=== PATIENT | female | born 1985 ===

== ENCOUNTER 2021-08-30 08:42 | Emergency (ER) | payer MEDICAID ==
[2021-08-30] MEDS ORDERED: levETIRAcetam 1000 MG/NS 0.75% 1,000 MG/100 ML BAG IV ONE (09:13)
[2021-08-30] MEDS ORDERED: LIDOCAINE (1%) 10 MG/1 ML VIAL 20 ML MDV INFILTRATI ONE (09:14)
[2021-08-30] MEDS ORDERED: SODIUM CHLORIDE 0.9% IRR 500 ML BOTTLE IR ONE (09:14)
[2021-08-30] MEDS ORDERED: TETANUS,DIPH,PERTUSS(ACELL) VACCINE 0.5 ML SYRINGE IM ONE (09:14)
--- NOTE | 2021-08-30 09:16 | Emergency Department Report ---
ED General Adult HPI - General Chief complaint: Seizure Stated complaint: I had a seizure and fell Time Seen by Provider: 08/30/21 08:49 Source: patient, EMS ( EMS documentation not available at time of chart dictation ), RN notes reviewed, old records reviewed Mode of arrival: Stretcher Limitations: No Limitations - History of Present Illness Initial comments: The patient is a 35-year-old female. She is not known to myself previously. She is currently on a 1013. The patient reports that she has a history of seizure disorder. She reports that she currently takes Keppra. She presents to the ER from a local psychiatric facility, for medical clearance for psychiatric redisposition. Patient reports that she was standing up, and reports that she had a seizure. She reports that she is taking her Keppra, and she reports that she fell onto her forehead. Prior to the seizure, the patient denies physical pain. The patient admits to left supraorbital pain. She is a mild frontal headache. There is no neck pain. There is no chest pain. There is no abdominal pain. Denies focal extremity weakness/numbness. Denies homicidality and suicidality. Denies loss of vision. Also reports that she had a seizure last night/2 days ago. Currently taking Seroquel, Keppra, and Remeron. Patient was recently medically cleared at another facility, and referred to the current psychiatric facility, with a 1013 that is documenting "impaired insight/ judgment, R/O psychosis." In addition, it is documented that the patient was attempting to bite staff. -: Sudden Location: head, face Severity scale (0 -10): 1 Quality: aching Consistency: constant Improves with: rest Worsens with: movement - Related Data Previous Rx's Medication Instructions Recorded Last Taken Type Bacitracin Zinc 28.35 gm TP BID 7 Days #1 oint...g. 08/30/21 Unknown Rx Clindamycin [Clindamycin CAP] 300 mg PO Q6H #27 capsule 08/30/21 Unknown Rx Ibuprofen [Motrin] 400 mg PO Q8H PRN #30 tablet 08/30/21 Unknown Rx Allergies Allergy/AdvReac Type Severity Reaction Status Date / Time benzoyl peroxide Allergy Unknown Verified 08/30/21 08:46 [From [facility]] codeine Allergy Unknown Verified 08/30/21 08:46 hyaluronic acid [From [facility]] Allergy Unknown Verified 08/30/21 08:46 Penicillins Allergy Unknown Verified 08/30/21 08:46 phenytoin [From Dilantin] Allergy Unknown Verified 08/30/21 08:46 ED Review of Systems ROS: Stated complaint: ALCOHOL WITHDRAWAL Other details as noted in HPI Constitutional: denies: fever Eyes: other (Left supraorbital pain). denies: eye discharge, vision change ENT: dental pain Respiratory: denies: cough Cardiovascular: denies: chest pain Gastrointestinal: denies: abdominal pain, nausea, vomiting, diarrhea Genitourinary: denies: dysuria Musculoskeletal: myalgia Neurological: headache. denies: weakness Psychiatric: anxiety. denies: homicidal thoughts, suicidal thoughts ED Past Medical Hx - Medications Home Medications: Home Medications Medication Instructions Recorded Confirmed Last Taken Type Bacitracin Zinc 28.35 gm TP BID 7 Days #1 oint...g. 08/30/21 Unknown Rx Clindamycin [Clindamycin CAP] 300 mg PO Q6H #27 capsule 08/30/21 Unknown Rx Ibuprofen [Motrin] 400 mg PO Q8H PRN #30 tablet 08/30/21 Unknown Rx ED Physical Exam - General Limitations: No Limitations General appearance: alert, anxious - Head Head exam: Present: normocephalic, other (Bilateral infraorbital ecchymosis noted. There is a 1.5 cm left lateral eyebrow/supraorbital laceration) - Eye Eye exam: Present: normal appearance, PERRL, EOMI, nystagmus, periorbital swelling (Left-sided), periorbital tenderness (Left-sided) - ENT ENT exam: Present: normal orophraynx, mucous membranes moist, TM's normal bilaterally, normal external ear exam. Absent: normal exam (Poor dentition) - Neck Neck exam: Present: normal inspection, full ROM. Absent: tenderness, men ingismus - Respiratory Respiratory exam: Present: normal lung sounds bilaterally. Absent: respiratory distress, wheezes, rales, rhonchi, stridor, decreased breath sounds - Cardiovascular Cardiovascular Exam: Present: regular rate, normal rhythm, normal heart sounds. Absent: bradycardia, tachycardia, irregular rhythm, systolic murmur, diastolic murmur, rubs, gallop - GI/Abdominal GI/Abdominal exam: Present: soft, normal bowel sounds. Absent: distended, tenderness, guarding, rebound, rigid, pulsatile mass - Extremities Exam Extremities exam: Present: normal inspection, full ROM, other (2+ pulses noted in the bilateral upper and lower extremities. There is no palpable cord. negative Homans sign. Muscular compartments are soft. The pelvis is stable.). Absent: pedal edema, calf tenderness - Back Exam Back exam: Present: normal inspection, full ROM. Absent: tenderness, CVA tenderness (R), CVA tenderness (L), paraspinal tenderness, vertebral tenderness - Neurological Exam Neurological exam: Present: alert, oriented X3, other (No facial droop. Tongue midline. Extraocular movements intact bilaterally. Facial sensation intact to light touch in V1, V2, V3 distribution bilaterally. 5 and a 5 strength in 4 extremities. Sensation intact to light touch in 4 extremities.). Absent: motor sensory deficit - Psychiatric Psychiatric exam: Present: normal affect, normal mood - Skin Skin exam: Present: warm, ecchymosis (Bilateral infraorbital ecchymosis) ED Course Vital Signs 08/30/21 08/30/21 08:47 11:39 Temperature 98.7 F Pulse Rate 93 H 84 Respiratory 18 18 Rate Blood Pressure 114/81 119/84 [Left] O2 Sat by Pulse 100 96 Oximetry - Reevaluation(s) Reevaluation #1: 08/30/21 10:51 Differential diagnosis, including but not limited to: Seizure, pneumonia, urinary tract infection, closed head injury, facial laceration, facial fracture, pseudoseizure, electrolyte derangement Assessment and plan: 35-year-old female, who is currently afebrile, with reas suring vital signs, who is clinically sober, with a GCS of 15, patient is clinically sober at this time. The cervical spine is cleared through nexus and [facility]er c spine rule who presents to the ER today with a complaint of seizure today, seizure yesterday, left supraorbital abrasion and ecchymosis, as well as laceration, and bilateral infraorbital ecchymosis. Noncontrast CT scan of the brain negative for acute findings. Noncontrast CT scan of the facial bones suggest left-sided infraorbital wall fracture. There are no clinical signs of entrapment. Visual acuity intact to finger counting, color perception, reading at a close distance Still awaiting laboratory studies. EKG unremarkable. Urinalysis and chest x- ray pending. Have repaired patient supraorbital laceration, please see pro cedure note. We will discuss with [facility] trauma team to address patient's left- sided infraorbital nondisplaced wall fracture. Anticipate outpatient follow-up for this. Reevaluation #2: 08/30/21 11:32 Discussed the patient's history, physical, laboratory studies and imaging studies as well as clinical impression with oral maxillofacial surgeon on-call for Dr. Nirav Paredes. Advises outpatient follow-up, antibiotics, sinus precautions, patient to follow-up within a week. Patient currently resting comfortably on stretcher, she is in no acute distress at this time. 08/30/21 12:47 Laboratory studies unremarkable. No seizures noted. Patient resting comfortably in stretcher, and in no acute distress 08/30/21 13:53 discussed with Muna [id number], medical assistant director of nursing for [facility]. Discussed the patient's history, physical, and pertinent imaging findings. I specifically discussed that patient's facial fracture is not a contraindication to discharge, and if this patient were not on a 1013, she will be discharged from the emergency room, to follow-up as an outpatient. Patient remains medically suitable for discharge with outpatient follow-up. It will be the responsibility the receiving psychiatric center to arrange outpatient follow-up 08/30/21 15:07 While awaiting transportation, a britton umana is called overhead. Apparently, patient trying to leave her room, trying to bite her sitter, not responding to verbal techniques or show of force. [id number] evaluation performed by myself. Ultimately, patient able to be deescalated, as needed Joyce is ordered. - Laceration /Wound Repair Left Upper Face Wound Location: face Wound Length (cm): 1 (1.5 cm) Wound's Depth, Shape: into muscle, linear, contused tissue Wound Explored: clean Irrigated w/ Saline (ccs): 500 Betadine Prep?: No Anesthesia: 1% Lidocaine Volume Anesthetic (ccs): 5 Wound Repaired With: sutures Suture Size/Type: 5:0 (Monofilament, interrupted) Number of Sutures: 3 Layer Closure?: No Sterile Dressing Applied?: Yes ED Medical Decision Making - Lab Data Result diagrams: 08/30/21 10:12 08/30/21 10:12 Vital Signs 08/30/21 08:47 Temperature 98.7 F Pulse Rate 93 H Respiratory 18 Rate Blood Pressure 114/81 [Left] O2 Sat by Pulse 100 Oximetry - EKG Data -: EKG Interpreted by Me EKG shows normal: sinus rhythm Rate: normal - EKG Data 08/30/21 10:46 The EKG is interpreted at 09: 19 Sinus rhythm, rate 92 bpm. Normal P wave axis, left axis deviation. Low voltage. QTC, [place] interval within normal limits. Nonspecific abnormal findings, Q waves noted in the inferior leads. This is an abnormal EKG, this is not a STEMI - Radiology Data Radiology results: pending, report reviewed, image reviewed CT facial bones wo con INDICATION: sz, fall closed head injuiry, facial injury. TECHNIQUE: CT face. All CT scans at this location are performed using CT dose reduction for ALARA by means of automated exposure control. COMPARISON: None. FINDINGS: Facial bones: Central midface: Nasal bones: Normal; perpendicular plate of ethmoid: Normal; no soft tissue swelling around the nasal septal cartilage Nasoorbitoethmoid: Normal Lateral midface: Orbit: Inferior orbital rim normal bilaterally; I am suspicious of fracture of the floor of the orbit on the left side; medial to infraorbital foramen; minimal displacement Zygomaticomaxillary complex: No fracture Zygomatic arch: Normal Mandible: No fracture TMJ: Normal Sinuses: Fluid accumulation in the left maxillary sinus. Orbits: Globes are intact. Additional findings:No other significant abnormality. IMPRESSION: I am suspicious of subtle nondisplaced fracture in the floor of the left orbit Signer Name: Mg Brown MD Signed: 08/30/2021 9:29 AM Workstation Name: [id number] [address] SCAN OF THE HEAD: INDICATION / CLINICAL INFORMATION: 35 years Female; sz, fall closed head injuiry. TECHNIQUE: Routine CT head without cont rast. All CT scans at this location are performed using CT dose reduction for ALARA by means of automated exposure control. COMPARISON: None. FINDINGS: BRAIN / INTRACRANIAL CONTENTS: No intracranial sequela from the trauma; scalp hematoma in the left frontal region; no fluid level in the visualized portions of the paranasal sinuses No acute hemorrhage, mass effect, midline shift, hydrocephalus, or acute, large territorial infarct. No chronic infarct or focal atrophy. Normal brain volume and ventricular/sulcal size for age. No significant white matter abnormality. CRANIOCERVICAL JUNCTION: No significant abnormality. ORBITS: No significant abnormality of visualized orbits. SINUSES / MASTOIDS: Fluid level in the left maxillary sinus ADDITIONAL FINDINGS: None. IMPRESSION: No intracranial sequela from the trauma; left frontal scalp hematoma Signer Name: Mg Brown MD Signed: 08/30/2021 9:20 AM Workstation Name: [id number] Chest x-ray negative for acute CHEST 1 VIEW 08/30/2021 11:47 AM INDICATION / CLINICAL INFORMATION: sz, left sided neuro stim device. COMPARISON: None available. FINDINGS: SUPPORT DEVICES: Neurostimulator device projects over the left chest wall. HEART / MEDIASTINUM: No significant abnormality. LUNGS / PLEURA: No significant pul monary or pleural abnormality. No pneumothorax. ADDITIONAL FINDINGS: No significant additional findings. IMPRESSION: 1. No acute findings. Signer Name: Jt Hutchinson MD Signed: 08/30/2021 11:15 AM Workstation Name: [id number] Critical care attestation.: If time is entered above; I have spent that time in minutes in the direct care of this critically ill patient, excluding procedure time. ED Disposition Clinical Impression: Closed head injury, Facial laceration, Seizure disorder, Fracture of orbital wall, Medical clearance for psychiatric admission Disposition: [address] [place] [address] Is pt being admited?: No Does the pt Need Aspirin: No Condition: Good Instructions: Laceration Care, Adult, Seizure, Adult Additional Instructions: The patient should not drive or operate motor vehicles for the next 6 months. The patient has left-sided supraorbital sutures, which should be taken out in 5 to 7 days. The patient should follow-up with her primary care doctor, urgent care center, or return to the emergency room to have the sutures taken out. Patient had CT scan of the brain and facial bones, which demonstrated a minimally displaced left-sided infraorbital wall fracture. The patient should follow-up with an ENT physician, or oral surgeon within the next 7 days for repeat checkup and evaluation. Patient's case was discussed with [facility] oral surgery, Dr. Trujillo, who advised this patient should follow-up within the recommended timeframe. Patient and family physician are free to contact alternative oral surgeons or ENT physicians for left-sided infraorbital wall fracture if they so desire. [place] contact information is as follows: [facility] [address] [place] [address] [address] Floor[address] Friday: 11 AM - 4:30 PM Friday: 8 AM - 4:30 PM Every other : 8 AM - 4:30 PM Every other Friday: 8 AM - 4:30 PM (Main) (Appointments) The patient should also take the antibiotics as directed, apply bacitracin antibiotics to the left supraorbital laceration, taking care to not applied to the left eye itself, the patient may take [id number] Tylenol and ibuprofen as needed for physical pain. Please return to the emergency room right away with new pain, worsened pain, migration of pain, projectile vomiting, change in mental status, confusion, inability tolerate liquid feeds, new, worsened or different symptoms not present on the initial emergency room evaluation Please have your primary care doctor contact the medical records department to obtain copies of laboratory studies and radiology studies, to follow-up on nonemergent incidental abnormal findings. The patient should also avoid blowing her nose, nasal trauma, manipulating the nose or face. Prescriptions: Bacitracin Zinc 28.35 gm TP BID 7 Days #1 oint...g. Clindamycin [Clindamycin CAP] 300 mg PO Q6H #27 capsule Ibuprofen [Motrin] 400 mg PO Q8H PRN #30 tablet PRN Reason: Pain Referrals: HECTOR PLAZA MD [Staff Physician] - 7-10 days
--- NOTE | 2021-08-30 10:24 | Cat Scan Report ---
NONENHANCED CT SCAN OF THE HEAD: INDICATION / CLINICAL INFORMATION: 35 years Female; sz, fall closed head injuiry. TECHNIQUE: Routine CT head without contrast. All CT scans at this location are performed using CT dos e reduction for ALARA by means of automated exposure control. COMPARISON: None. FINDINGS: BRAIN / INTRACRANIAL CONTENTS: No intracranial sequela from the trauma; scalp hematoma in the left fr ontal region; no fluid level in the visualized portions of the paranasal sinuses No acute hemorrhage, mass effect, midline shift, hydrocephalus, or acute, large territorial infarct. No chronic infarct or focal atrophy. Normal brain volume and ventricular/sulcal size for age. No sign ificant white matter abnormality. CRANIOCERVICAL JUNCTION: No significant abnormality. ORBITS: No significant abnormality of visualized orbits. SINUSES / MASTOIDS: Fluid level in the left maxillary sinus ADDITIONAL FINDINGS: None. IMPRESSION: No intracranial sequela from the trauma; left frontal scalp hematoma Signer Name: Mg Brown MD Signed: 08/30/2021 10:20 AM Workstation Name: [id number]
--- NOTE | 2021-08-30 10:34 | Cat Scan Report ---
CT facial bones wo con INDICATION: sz, fall closed head injuiry, facial injury. TECHNIQUE: CT face. All CT scans at this location are performed using CT dose reduction for ALARA by means of automated exposure control. COMPARISON: None. FINDINGS: Facial bones: Central midface: Nasal bones: Normal; perpendicular plate of ethmoid: Normal; no soft tissue swelling around th e nasal septal cartilage Nasoorbitoethmoid: Normal Lateral midface: Orbit: Inferior orbital rim normal bilaterally; I am suspicious of fracture of the floor of th e orbit on the left side; medial to infraorbital foramen; minimal displacement Zygomaticomaxillary complex: No fracture Zygomatic arch: Normal Mandible: No fracture TMJ: Normal Sinuses: Fluid accumulation in the left maxillary sinus. Orbits: Globes are intact. Additional findings:No other significant abnormality. IMPRESSION: I am suspicious of subtle nondisplaced fracture in the floor of the left orbit Signer Name: Mg Brown MD Signed: 08/30/2021 10:29 AM Workstation Name: [id number]
[2021-08-30] MEDS ORDERED: BACITRACIN ZINC OINT 28.4 GM TP STA (10:47)
[2021-08-30 10:55] LABS: Bilirubin,Urine NEG (Negative); Blood,Urine NEG (Negative); Color,Urine Yellow (Yellow); Mucus,Urine FEW /HPF; Protein,Urine <15 mg/dL mg/dL (Negative); Urobilinogen,Urine < 2.0 mg/dL (<2.0)
[2021-08-30 10:58] LABS: Hematocrit 43.2 % (30.3-42.9); Hemoglobin 13.5 gm/dl (10.1-14.3); Mean Corpuscular HGB Conc 31 % (30-34); Mean Corpuscular Volume 90 fl (79-97); Platelet Count 390 K/mm3 (140-440); Red Blood Count 4.83 M/mm3 (3.65-5.03); Red Cell Distribution Width 15.8 % (13.2-15.2)
[2021-08-30 11:04] LABS: Alanine Aminotransferase 13 units/L (7-56); Albumin 4.3 g/dL (3.9-5); Blood Urea Nitrogen 12 mg/dL (7-17); Calcium 9.6 mg/dL (8.4-10.2); Hemolysis Index 12
[2021-08-30 11:40] VITALS: BP 119/84
[2021-08-30 11:41] LABS: BUN/Creatinine Ratio 17
[2021-08-30] MEDS ORDERED: KETOROLAC 30 MG/1 ML INJ IV ONE (11:43)
--- NOTE | 2021-08-30 12:19 | XRay Report ---
CHEST 1 VIEW 08/30/2021 11:47 AM INDICATION / CLINICAL INFORMATION: sz, left sided neuro stim device. COMPARISON: None available. FINDINGS: SUPPORT DEVICES: Neurostimulator device projects over the left chest wall. HEART / MEDIASTINUM: No significant abnormality. LUNGS / PLEURA: No significant pulmonary or pleural abnormality. No pneumothorax. ADDITIONAL FINDINGS: No significant additional findings. IMPRESSION: 1. No acute findings. Signer Name: Jt Hutchinson MD Signed: 08/30/2021 12:15 PM Workstation Name: [id number]
[2021-08-30] MEDS ORDERED: CLINDAMYCIN 300 MG CAP PO ONE (12:47)
--- NOTE | 2021-08-30 13:33 | Electrocardiograph Report ---
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
[2021-08-30] MEDS ORDERED: ZIPRASIDONE MESYLATE 20 MG VIAL IM PRN (14:33)
== END 2021-08-30 19:10 ==
LOC: ED 08:42
DX: S01.81XA Laceration without foreign body of other part of head, initial encounter (principal); G40.909 Epilepsy, unspecified, not intractable, without status epilepticus; S02.85XA Fracture of orbit, unspecified, initial encounter for closed fracture; W18.39XA Other fall on same level, initial encounter; Y93.89 Activity, other specified; Y92.89 Other specified places as the place of occurrence of the external cause; Y99.8 Other external cause status; Z88.0 Allergy status to penicillin; Z88.5 Allergy status to narcotic agent; Z88.8 Allergy status to other drugs, medicaments and biological substances
CPT/HCPCS: 12011; 36415; 70450; 70486; 71045; 80053; 81001; 82550; 83735; 84702; 85027; 90471; 90715; 93005; 96365; 96375; 99285; J1885; J1953; J3486; J3490; 80320; G0480